=== PATIENT | male | born 1955 | race Caucasian/White ===

== ENCOUNTER 2016-12-10 11:50 | Inpatient (IN) | payer OTHER ==
[~2016-12-10] VITALS: Ht 193 cm; Wt 123.4 kg
[2016-12-15] MEDS ORDERED: HYDROCHLOROTHIA25 MG PO (15:49)
[2016-12-15] MEDS ORDERED: PRILOSEC DPS20 MG PO (15:49)
[2016-12-15] MEDS ORDERED: GARLIC500 M1 PO (15:51)
[2016-12-15] MEDS ORDERED: BYSTOLIC5 MG PO (15:51)
[2016-12-15] MEDS ORDERED: POTASSIUM99 M1 PO (15:56)
[2016-12-15] MEDS ORDERED: SENOKOT S1 TAB PO (15:56)
[2016-12-15] MEDS ORDERED: POLYETHYLENE GL17 GM PO (15:57)
[2016-12-15] MEDS ORDERED: NORCO 5-325 TA1 EACH PO (15:57)
[2016-12-15] MEDS ORDERED: MILK OF MAGNESI10 ML PO (15:57)
[2016-12-15] MEDS ORDERED: VALTREX DPS1 GM PO (15:58)
--- NOTE | 2016-12-16 08:28 | HP ---
ADMIT: 12/10/2016 RM/LOC: 506 [facility] MR#: [id number] [address] DEMETRIUSBARTOLOME WATERS [address] [place] [address] History and Physical SEX: M AGE: 61 : 1955 DATE OF SERVICE: CHIEF COMPLAINT: Headache. HISTORY OF PRESENT ILLNESS: The patient initially presented to clinic yesterday with headache and fever onset of approximately 24 hours. Headache was severe in the frontal and occipital regions. Headache was accompanied by fever and chills. At this time, there was no nausea, vomiting, abdominal pain, dysuria, visual disturbances, or nuchal rigidity. Clinical evaluation showed increased white blood cells and negative influenza. He was given Toradol and Rocephin and was told to go home and be re-evaluated in the morning. When he presented back to the clinic today, fever had resolved. However, he continued to have a severe headache, now more localized to the frontal area. Severe nausea and vomiting had since developed and he is unable to keep anything down. He does not have any abdominal pain. No diarrhea. No nuchal rigidity although the headache continued to persist. PAST MEDICAL HISTORY: Significant for: 1. SVT. 2. Abdominal aortic aneurysm without rupture. 3. Hypertension. 4. Allergic rhinitis. 5. Obstructive sleep apnea, on CPAP. 6. GERD. 7. Arthritis. 8. Microscopic hematuria. 9. History of benign neoplasm of the colon. 10.History of alcohol abuse. 11.History of tobacco abuse. CURRENT MEDICATIONS: 1. Bystolic 5 mg half a tablet daily. 2. Hydrochlorothiazide 25 mg one daily. 3. Ibuprofen 800 mg three times daily as needed. 4. Omeprazole 20 mg daily. 5. Potassium gluconate 550 mg daily. 6. Zanaflex 4 mg every 8 hours as needed. 7. Tramadol 50 mg three times daily as needed. ALLERGIES: HE IS ALLERGIC TO TETRACYCLINES. SOCIAL HISTORY: He is a current nonsmoker. REVIEW OF SYSTEMS: Pertinent negatives include no diarrhea, no nuchal rigidity. He is positive for photophobia, nausea and vomiting, back pain, and headaches. PHYSICAL EXAMINATION: VITAL SIGNS: Blood pressure of 112/74, pulse of 76, temperature was 36.7 degrees Celsius, respirations were 16. Weight was 268 ADMIT: 12/10/2016 RM/LOC: 506 [facility] MR#: [id number] [address] BARTOLOME AGUILERA [facility] [place] [place] [address] History and Physical SEX: M AGE: 61 : 1955 pounds. SPO2 is 97%. BMI 32.65 kg/m2. CONSTITUTIONAL: He is orientated to person, place, and time. He is well developed, well nourished, in no apparent distress. HEENT: Head, normocephalic. Ears are normal. Nose, normal. Mouth and throat, clear and moist. Eyes; pupils are equal, round, and reactive to light. There is slight nystagmus to the right. NECK: Normal range of motion. PULMONARY: Breathing effort is normal. Breath sounds are normal. ABDOMEN: Soft. There is some slight tenderness in the right lower quadrant and left upper quadrant. NEUROLOGIC: DTRs are normal, and his strength is normal bilaterally. SKIN: Warm and dry. LABORATORY AND X-RAY DATA: White blood cells this morning were 13.7, which is down from yesterday at 16.2; hemoglobin today was 17.2 with hematocrit of 51.4, lymphocytes were 10 and granulocytes were 10.8. CMP was unremarkable other than his glucose was 126. His sodium today was 134. Yesterday, a CRP of 4.9 was obtained and he had a sedimentation rate that was 0. ASSESSMENT: 1. Headache with fever. 2. Nausea and vomiting. 3. Leukocytosis. PLAN: Admit. CT of the head without contrast and if head CT is negative, we will proceed to a lumbar puncture. Christy Bernal MD/ sully JOB #: [id number] CC: Christy Bernal, Attending Physician Molly Ac, Family Physician
--- NOTE | 2016-12-16 08:28 | DS ---
ADMIT: 12/10/2016 RM/LOC: 506 [facility] MR#: [id number] [address] BARTOLOME AGUILERA [address] [place] [address] Discharge Summary SEX: M AGE: 61 : 1955 ADMISSION DATE: 12/10/2016 DISCHARGE DATE: 12/14/2016 DISCHARGE DIAGNOSES: 1. Headache. 2. Fever. 3. 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 4. Hypertension by history. 5. Obstructive sleep apnea. 6. Constipation. 7. SVT (supraventricular tachycardia). 8. Obesity. HOSPITAL COURSE: The patient was admitted through the clinic with a fever, headache. He had a workup, which involved a CT scan, which was negative, a lumbar puncture, which did show evidence of elevated white count, elevated protein, normal glucose. He was treated for presumptive meningitis, bacterial, as well as covered with acyclovir. An Infectious Disease consult was obtained. Patient's cultures came back HSV2 meningitis. He was continued on IV acyclovir. His fever and headache improved. The plan was for him to be discharged home. He is to be discharged home on: 1. Valacyclovir 1 g p.o. t.i.d. until 12/20/2016. 2. He is to follow up with Dr. Humphries in 1 week. 3. He is have a hydrocodone p.r.n. 4. Senna 2 p.o. b.i.d. 5. MiraLAX daily. 6. Milk of magnesia daily. 7. Hydrochlorothiazide. 8. Bystolic. 9. Omeprazole. 10.Otherwise follow up with Molly Saini later this week. Christy Bernal MD/ whit JOB #: [id number] CC: Christy Bernal MD, Attending Physician Molly Ac APRN, Family Physician
--- NOTE | 2016-12-24 11:02 | CO ---
ADMIT: 12/10/2016 RM/LOC: 506 [facility] MR#: [id number] [address] BARTOLOME HODGSON [address] [place] [address] Consultation SEX: M AGE: 61 : 1955 DATE OF CONSULTATION: 12/11/2016 ATTENDING PHYSICIAN: Christy Bernal CONSULTING PHYSICIAN: Clara Humphries MD REASON FOR CONSULT: Meningitis. Thank you, Dr. Dowd, for the consult and involving me in this patient's care. HISTORY OF PRESENT ILLNESS: Mr. Hodgson is a 61-year-old man, who presented to Dr. Bernal's clinic, 3 days prior with complaint of headache and fever. He described his headache mainly in the frontal region associated with mild photophobia and neck pain. He also reported fevers at home. He also complained of nausea and vomiting and hence was admitted to the hospital for further management. A lumbar puncture was done, and CSF showed 449 wbc with 93% mononuclear cells, and protein of 163, and 53 glucose. He was started on ceftriaxone, vancomycin, ampicillin, and acyclovir. Today he reports mild improvement in his symptoms. He denies any recent travel or tick or mosquito bites. He lives at home alone with his dog. He reports doing some yard work. Denies any recent travel or any sick contacts. Denies any bowel or bladder complaints. PAST MEDICAL HISTORY: Abdominal aortic aneurysm without rupture; SVT; hypertension; obstructive sleep apnea, on CPAP; allergic rhinitis; GERD; arthritis; benign neoplasm of colon; microscopic hematuria; history of alcohol abuse; history of tobacco use. ALLERGIES: TO TETRACYCLINE. SOCIAL HISTORY: He is a current smoker. Denies any alcohol or recreational drug use. CURRENT MEDICATIONS: Include: 1. Ampicillin 2 g every 4 hours. 2. Ceftriaxone 2 g twice daily. 3. Vancomycin 1 g twice daily. 4. Acyclovir 200 mg every 8 hours. REVIEW OF SYSTEMS: A 10-point review of systems negative except as mentioned in HPI. FAMILY HISTORY: His father had colon cancer. PHYSICAL EXAMINATION: VITAL SIGNS: Current temperature 99.1, T-max 101.1, heart rate 62, blood pressure 103/65, respirations 20, and 98% on room air. GENERAL: No acute distress. HEENT: Head, normocephalic and atraumatic. Extraocular movements intact. Oral mucosa moist. ADMIT: 12/10/2016 RM/LOC: 506 [facility] MR#: [id number] [address] BARTOLOME HODGSON [facility] [place] [address] Consultation SEX: M AGE: 61 : 1955 LYMPH: No palpable anterior/posterior cervical or supraclavicular lymphadenopathy. NECK: Supple. CHEST: Decreased breath sounds bilaterally. No wheezes, rales, or rhonchi. CARDIOVASCULAR: S1 and S2 heard. No murmurs, rubs, or gallops. ABDOMEN: Soft, obese, nontender. SKIN: No rash noted on exposed skin. PSYCH: Normal affect. Memory intact. NEURO: Awake, alert, oriented x3. No nuchal rigidity. ASSESSMENT: 1. Meningitis, questionable viral etiology. At this time, I will continue him on ceftriaxone, vancomycin, acyclovir, and ampicillin. We will run meningitis/encephalitis NAAT panel on CSF if any available. His CSF culture has been no growth to date. 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 Hence, I would like to do a cervical and thoracic MRI with contrast. He already received MRI brain with contrast today, hence, we will order it for tomorrow. We will also check for syphilis cascade testing. 2. Obesity. 3. Sleep apnea. 4. Hypertension. Thank you for the consult. I will continue to follow the patient. Clara Humphries MD/ sully JOB #: [id number] CC: Christy Bernal, Attending Physician Molly Ac, Family Physician
== END 2016-12-14 15:12 | disposition home or self-care (01) | DRG 75 ==
LOC: 5MS 11:50
PROVIDERS: ADMIT Internal Medicine
DX: B00.3 Herpesviral meningitis (principal); I47.1 Supraventricular tachycardia; I10 Essential (primary) hypertension; I71.4 Abdominal aortic aneurysm, without rupture; D72.829 Elevated white blood cell count, unspecified; J30.9 Allergic rhinitis, unspecified; K59.00 Constipation, unspecified; G47.33 Obstructive sleep apnea (adult) (pediatric); K21.9 Gastro-esophageal reflux disease without esophagitis; M19.90 Unspecified osteoarthritis, unspecified site; F17.210 Nicotine dependence, cigarettes, uncomplicated; E66.9 Obesity, unspecified; Z68.32 Body mass index [BMI] 32.0-32.9, adult